=== PATIENT | female | born 1945 | race Caucasian/White ===

== ENCOUNTER 2017-02-27 07:10 | Observation (INO) | payer MEDICARE ==
[2017-02-27] MEDS ORDERED: Morphine 2 MG/ML SYRINGE ONE ×4 (08:09→11:36)
--- NOTE | 2017-02-27 08:47 | RAD ---
THREE VIEWS LUMBOSACRAL SPINE: 02/27/17 COMPARISON: None. HISTORY: Plasma cell leukemia with back pain. FINDINGS: Three views lumbosacral spine shows vertebroplasty cement within the L5 vertebral body. There is wed ge compression deformity of the L1 vertebral body with approximately 25% height loss. This appears t o be chronic as there are end plate degenerative changes along the superior end plate. Small osteoph ytes are seen throughout the lumbar spine. Vertebroplasty cement is also seen in the lower thoracic spine. IMPRESSION: Wedge compression deformity of L1. POS: [facility]
[2017-02-27] MEDS ORDERED: Cyclobenzaprine 10 MG TAB ONE (09:26)
[2017-02-27 10:16] LABS: #Eosinphils 0.1 thou/uL (0.0-0.7); #Lymphocytes 0.7 thou/uL (1.20-3.40); #Monocytes 0.7 thou/uL (0.11-0.59); #Neutrophils 3.9 thou/uL (1.40-6.50); %Basophils 0.3 % (0.0-1.0); %Eosinophils 1.5 % (0.0-10.0); %Lymphocytes 12.7 % (21.0-51.0); %Monocytes 13.3 % (0.0-10.0); Hematocrit 39.9 % (36.0-47.0); Mean Platelet Volume 8.5 fL (7.4-10.4); Red Blood Cell (RBC) Count 3.84 mill/uL (4.20-5.40); White Blood Cell (WBC) Count 5.4 thou/uL (4.8-10.8)
[2017-02-27 10:24] LABS: Anion Gap 14 mmol/L (10-20); BUN (Urea Nitrogen) 18 mg/dL (9.8-20.1); Calc. Creatinine Clearance 0 mL/min (70-130); Calcium 9.8 mg/dL (7.8-10.44); Carbon Dioxide 21 mmol/L (23-31); Chloride 109 mmol/L (98-107); Estimated GFR-MDRD 58
[2017-02-27 11:36] LABS: Bilirubin Negative (Negative); Blood, Urine Trace (Negative); Glucose, Urine (Dipstick) Negative (Negative); Ketone, Urine Negative (Negative); Nitrite Negative (Negative); Protein, Urine (Dipstick) Negative (Neg-Trace); Urobilinogen 0.2 mg/dL (0.2-1.0)
[2017-02-27 11:39] LABS: Bacteria/HPF None Seen HPF (None Seen); Hyaline Casts/LPF 0-3 HYALINE CAST LPF (0-3 Hyaline); Squamous Epithelial 0-3 HPF (0-3); WBC/HPF 0-3 HPF (0-3)
[2017-02-27] MEDS ORDERED: Diabetic Tussin 200 MG/10 ML UDCUP PO PRN (12:52)
[2017-02-27] MEDS ORDERED: Mag-Al 1200 mg/1200 mg/30 ML UDCUP PO PRN (12:52)
[2017-02-27] MEDS ORDERED: Artificial Tears 18 DROP/0.9 ML EA EYE PRN (12:52)
[2017-02-27] MEDS ORDERED: Eucerin (Mineral Oil/Petrolatum,White) 30 gm Jar TOP PRN (12:52)
[2017-02-27] MEDS ORDERED: hydrALAZINE 20 MG/ML VIAL SLOW IVP PRN (12:52)
[2017-02-27] MEDS ORDERED: HYDROcodone/Acetaminophen 10/325 mg Tablet PO PRN (12:52)
[2017-02-27] MEDS ORDERED: Acetaminophen 325 MG TAB PO PRN (12:52)
[2017-02-27] MEDS ORDERED: cloNIDine 0.1 MG TAB PO PRN (12:52)
[2017-02-27] MEDS ORDERED: Loperamide HCl 2 MG CAP PO PRN (12:52)
[2017-02-27] MEDS ORDERED: Senokot 8.6 MG TAB PO PRN (12:52)
[2017-02-27] MEDS ORDERED: Chloraseptic Spray 180 ml Bottle PO PRN (12:52)
[2017-02-27] MEDS ORDERED: Loratadine 10 MG TAB PO PRN (12:52)
[2017-02-27] MEDS ORDERED: Ondansetron HCl/PF 4 MG/2 ML Vial IVP PRN (12:52)
[2017-02-27] MEDS ORDERED: Milk Of Magnesia 30 ML UDCUP PO PRN (12:52)
[2017-02-27] MEDS ORDERED: Zolpidem Tartrate 5 MG TAB PO PRN (12:52)
[2017-02-27] MEDS ORDERED: Sodium Chloride 0.65% Nasal 44 ML BOT EA NARE PRN (12:52)
[2017-02-27] MEDS ORDERED: Ondansetron ODT 4 MG TAB PO PRN (12:52)
--- NOTE | 2017-02-27 13:29 | HP ---
PRIMARY CARE PHYSICIAN: Toribio Chavez M.D. REASON FOR ADMISSION: Acute on chronic low back pain. HISTORY OF PRESENT ILLNESS: A 71-year-old female who has diagnosis of multiple myeloma, which was diagnosed in 2014 and subsequently patient had a stem cell transplant in 2017. Patient has multiple compression fractures in the past, required several kyphoplasty and she does have chronic low back pain. This time she came to emergency room for increasing acute back pain. The patient reports that she does have chronic low back pain, but it is able to be managed with oral pain medication. Yesterday afternoon, the pain was started increasing. In evening time, the pain became more excruciating and around midnight, the patient's pain was not manageable with the pain medication. The patient was also having difficulty getting out of bed. The patient's helps to make her in bed. This morning, the patient was not able to ambulate because of excruciating pain even with help and that is why family member called paramedics and paramedics brought her to emergency room. Her pain level is more than 10/10. She never experienced this degree of pain. She was not able to walk because of extreme pain and that is why she came to emergency room for evaluation. Patient reports that she was given pain medication, Tylenol #3 which is no longer helping. Patient had several kyphoplasty procedures done by Dr. Javed in [place]. She had most recently kyphoplasty done in 01/27/2017 at L5 level and subsequently she made followup appointment with Dr. Javed. At that time, patient had MRI which was unchanged and she was told that everything was fine. She does not know what precipitated her back pain, but the pain started spontaneously and she also reports that her L5 compression fracture was also spontaneous. The patient denies any incontinence of urination or stool. She denies any constipation or diarrhea. She denies any UTI symptoms. She denies any chest pain, palpitation or shortness of breath. She denies any headache or fall. She denies any chest pain, palpitations or syncope. In the emergency room, the patient had x-ray of lumbar spine which showed L1 compressive deformity. The patient was given pain medication with morphine 4 mg x3 doses and Flexeril 10 mg. After that, patient's pain was somewhat controlled, but not to the point baseline. The patient is being admitted for pain control. PAST MEDICAL HISTORY: Plasma cell cytoma (multiple myeloma diagnosed in 2014 and subsequently required stem cell transplantation). Labile hypertension, she reports to be white coat hypertension, never treated. Dyslipidemia diagnosed in 2003, but she is no longer taking any statin therapy. History of polio by age of 7 with left arm weakness. History of left breast cancer required lumpectomy in 2010, subsequently patient had radiation therapy. She is following Oncology in [place], [place]. PAST SURGICAL HISTORY: Rotator cuff repair, left breast lumpectomy, in 1981, colonoscopy showed diverticulosis in 2010, cataract surgery, MediPort placement in October, L5 kyphoplasty in 01/27/2017. Patient had T8, T9, T10, and T11 kyphoplasty in past, stem cell transplant on 12/2016, ?heart bypass surgery , appendicectomy, elbow surgery, left eye retinal tear repair. PAST PSYCHIATRIC HISTORY: Reviewed and negative. SOCIAL HISTORY: Patient is and lives at home with the family. No history of tobacco, alcohol or illicit drug abuse. ALLERGIES: No known drug allergies. CURRENT HOME MEDICATIONS: Tylenol #3 one tablet q.6 hourly p.r.n., Remeron 7.5 mg p.o. at bedtime. EMERGENCY ROOM COURSE: The patient is given morphine 4 mg 3 times dose, Flexeril 10 mg. FAMILY HISTORY: No strong family history of premature coronary artery disease, stroke or cancer. REVIEW OF SYSTEMS: The following complete review of systems was negative, unless otherwise mentioned in the HPI or below: Constitutional: Weight loss or gain, ability to conduct usual activities. Skin: Rash, itching. Eyes: Double vision, pain. ENT/Mouth: Nose bleeding, neck stiffness, pain, tenderness. Cardiovascular: Palpitations, dyspnea on exertion, orthopnea. Respiratory: Shortness of breath, wheezing, cough, hemoptysis, fever or night sweats. Gastrointestinal: Poor appetite, abdominal pain, heartburn, nausea, vomiting, constipation, or diarrhea. Genitourinary: Urgency, frequency, dysuria, nocturia. Musculoskeletal: Pain, swelling. Neurologic/Psychiatric: Anxiety, depression. Allergy/Immunologic: Skin rash, bleeding tendency. Please see my HPI for pertinent positives and negative. All other review of system reviewed and negative except as mentioned in the HPI. PHYSICAL EXAMINATION: VITAL SIGNS: On arrival, blood pressure 156/80, pulse 78, respiratory rate 20, temperature 97.6, saturation 100% on room air, weight 61 kilograms. GENERAL: The patient is currently in mild distress due to back pain. HEAD: Normocephalic, atraumatic. EYES: Pupils round, reactive to light. Extraocular muscle intact. ENT: Oropharynx within normal limits. Moist mucous membrane, no oral lesions, no pharyngeal erythema, no exudate. NECK: Supple. Range of motion is normal. No meningeal signs of irritation. LUNGS: Clear to auscultation without any rhonchi or rales. CARDIAC: S1 and S2 regular without any murmur. ABDOMEN: Soft, bowel sounds present, nontender, nondistended. No organomegaly , no mass, no suprapubic tenderness. BACK: Examination unremarkable, no CVA tenderness. Point tenderness noted at L2-L3. EXTREMITIES: Upper extremity passive movement normal. Lower extremity passive movements of all joints are normal. No edema, good peripheral pulsation. SKIN: No skin rash. HEMATOLOGICAL SYSTEM: No lymphadenopathy. PSYCHIATRIC: Normal affect. NEUROLOGIC: The patient is alert and oriented x3. Cranial nerves II-XII intact. Motor 5/5 in all four limbs. Sensation bilaterally symmetrical. No gross focal neurological deficit noted. IMAGING AND SIGNIFICANT LABORATORY DATA: X-ray of lumbar spine showing post- surgical changes, L1 vertebral body loss consistent with wedge compression deformity of L1. CBC: WBC 5.4, hemoglobin 13.2, MCV 104, and platelets 159. BMP: Sodium 140, potassium 3.7, chloride 109, carbon dioxide 21, BUN 18, creatinine 0.95, calcium 9.8. Urinalysis unremarkable. ASSESSMENT AND PLAN/IMPRESSION: 1. Acute and chronic low back pain. This patient has exacerbation of chronic low back pain. I am suspecting new compression fracture. This patient's x-ray lumbar spine showing wedge compression deformity of L1. At this point, patient has severe pain and she is not able to ambulate. The patient cannot be managed at home and her oral pain medication is not helping. This patient will need hospitalization for pain control. We will control her pain with morphine 4 mg every 4 hourly, Toradol 15 mg IV q.6 hourly and muscle relaxant, Flexeril 10 mg t.i.d. p.r.n. We will consult rehabilitation for inpatient rehabilitation placement and I will also do lumbar spine MRI to rule out any acute pathology. 2. Macrocytosis. We will start folic acid 1 mg p.o. daily, vitamin B12 1000 mcg p.o. daily. 3. Plasma cell leukemia/multiple myeloma. The patient is following Oncology in [place], [place]. 4. History of hypertension, history of dyslipidemia, history of anxiety and depression, history of chronic low back pain. 5. Deep venous thrombosis prophylaxis, Lovenox 30 mg subcutaneously daily. 6. Gastrointestinal prophylaxis, Pepcid 20 mg p.o. b.i.d. 7. Code status: The patient is FULL CODE. Patient's is surrogate decision maker. Disposition plan based on clinical course. 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 BAILEY
[2017-02-27] MEDS: Ketorolac Tromethamine 30 MG/ML VIAL IVP PRN ×2 (14:20→21:42)
[2017-02-27 15:57] VITALS: BMI 22.8
[2017-02-27] MEDS ORDERED: Sterile Water 10 ML VIAL IVP SCH (17:00)
[2017-02-27] MEDS ORDERED: Activase 2 MG VIAL CATH SCH (17:00)
[2017-02-27] MEDS: Cyclobenzaprine 10 MG TAB PO PRN (17:40)
[2017-02-27] MEDS: Docusate 100 MG CAP PO SCH (21:42)
[2017-02-27] MEDS: Famotidine 20 MG TAB PO SCH (21:42)
[2017-02-28] MEDS: Lorazepam 0.5 MG TAB PO PRN ×2 (00:11→22:57)
[2017-02-28] MEDS: Ketorolac Tromethamine 30 MG/ML VIAL IVP PRN ×4 (04:31→22:56)
[2017-02-28] MEDS: Cyclobenzaprine 10 MG TAB PO PRN ×3 (04:32→20:44)
[2017-02-28] MEDS: Docusate 100 MG CAP PO SCH ×2 (08:55→20:38)
[2017-02-28] MEDS: Enoxaparin Sodium 30 MG/0.3 ML SYRINGE SC SCH (08:55)
[2017-02-28] MEDS: Cyanocobalamin (Vitamin B-12) 1,000 MCG TAB PO SCH (08:55)
[2017-02-28] MEDS: Folic Acid 1 MG TAB PO SCH (08:56)
[2017-02-28] MEDS: Famotidine 20 MG TAB PO SCH ×2 (08:56→20:39)
--- NOTE | 2017-02-28 11:41 | PDOC.PN ---
- Subjective Encounter Start Date: 02/28/17 Encounter Start Time: 09:10 -: old records requested/rev pt still has pain, has not done therapy yet Patient seen and examined. No new complaints. No overnight events - Objective Resuscitation Status: Resuscitation Status FULL:Full Resuscitation MAR Reviewed: Yes Vital Signs & Weight: Vital Signs (12 hours) Temp Pulse Resp BP Pulse Ox 02/28/17 07:18 98.4 F 59 L 16 106/66 97 02/28/17 04:00 97.7 F 57 L 16 113/69 95 02/28/17 00:00 97.6 F 57 L 16 100/61 96 Weight Weight 133 lb I&O: 02/27/17 02/28/17 03/01/17 06:59 06:59 06:59 Intake Total 480 Balance 480 Result Diagrams: 02/27/17 09:46 02/27/17 09:46 Radiology Reviewed by me: Yes Phys Exam - Physical Examination Constitutional: NAD HEENT: PERRLA, moist MMs, sclera anicteric Neck: no JVD, supple Respiratory: no wheezing, no rales, no rhonchi Cardiovascular: RRR, no significant murmur, no rub Gastrointestinal: soft, non-tender, no distention, positive bowel sounds Musculoskeletal: no edema, pulses present Neurological: non-focal, normal sensation Lymphatic: no nodes Psychiatric: normal affect, A&O x 3 Skin: no rash, normal turgor Dx/Plan (1) Acute exacerbation of chronic low back pain Code(s): M54.5 - LOW BACK PAIN; G89.29 - OTHER CHRONIC PAIN Status: Acute (2) Anxiety and depression Code(s): F41.8 - OTHER SPECIFIED ANXIETY DISORDERS Status: Chronic (3) Compression fracture Code(s): NOL7109 - Status: Chronic (4) Macrocytosis Code(s): D75.89 - OTHER SPECIFIED DISEASES OF BLOOD AND BLOOD-FORMING ORGANS Status: Chronic (5) Plasma cell leukemia in remission Code(s): C90.11 - PLASMA CELL LEUKEMIA IN REMISSION Status: Chronic - Plan cont current plan of care, plan discussed w/ family, PT/OT, public health social worker * continue pain control * today MRI * rehab evaluation * medication reviewed as below * symptomatic treatment. Review of Systems - Review of Systems Eyes: negative: Pain, Vision Change, Conjunctivae Inflammation, Eyelid Inflammation, Redness, Other ENT: negative: Ear Pain, Ear Discharge, Nose Pain, Nose Discharge, Nose Congestion, Mouth Pain, Mouth Swelling, Throat Pain, Throat Swelling, Other Respiratory: negative: Cough, Dry, Shortness of Breath, Hemoptysis, SOB with Excertion, Pleuritic Pain, Sputum, Wheezing Cardiovascular: negative: Chest Pain, Palpitations, Orthopnea, Paroxysmal Noc. Dyspnea, Edema, Light Headedness, Other Gastrointestinal: negative: Nausea, Vomiting, Abdominal Pain, Diarrhea, Constipation, Melena, Hematochezia, Other Genitourinary: negative: Dysuria, Frequency, Incontinence, Hematuria, Retention , Other Musculoskeletal: Back Pain. negative: Neck Pain, Shoulder Pain, Arm Pain, Hand Pain, Leg Pain, Foot Pain, Other - Medications/Allergies Allergies/Adverse Reactions: Allergies Allergy/AdvReac Type Severity Reaction Status Date / Time No Known Allergies Allergy Unverified 02/27/17 13:23 Medications: Current Medications Acetaminophen (Tylenol) 650 mg PO Q4H PRN PRN Reason: Headache/Fever or Pain Hydrocodone Bitart/Acetaminophen (Kenneth 10/325) 1 tab PO Q4H PRN PRN Reason: Moderate Pain (4-6) Al Hydroxide/Mg Hydroxide (Maalox) 30 ml PO Q6H PRN PRN Reason: Heartburn or Indigestion Artificial Tears (Tears Naturale) 0 drop EA EYE PRN PRN PRN Reason: Dry Eyes Clonidine HCl (Catapres) 0.1 mg PO Q4H PRN PRN Reason: Systolic BP > 180 Cyanocobalamin (Vitamin B-12) 1,000 mcg PO DAILY [facility] Last Admin: 02/28/17 08:55 Dose: Not Given Cyclobenzaprine HCl (Flexeril) 10 mg PO TIDPRN PRN PRN Reason: Muscle Spasm Last Admin: 02/28/17 04:32 Dose: 10 mg Docusate Sodium (Colace) 100 mg PO BID [facility] Last Admin: 02/28/17 08:55 Dose: Not Given Enoxaparin Sodium (Lovenox) 30 mg SC 0900 [facility] Last Admin: 02/28/17 08:55 Dose: Not Given Famotidine (Pepcid) 20 mg PO BID [facility] Last Admin: 02/28/17 08:56 Dose: Not Given Folic Acid (Folvite) 1 mg PO DAILY [facility] Last Admin: 02/28/17 08:56 Dose: Not Given Guaifenesin (Robitussin Sf) 200 mg PO Q4H PRN PRN Reason: Cough Heparin Sodium (Porcine) (Heparin Lock Flush 100 Units/Ml) 500 units IVF PRN PRN PRN Reason: Heparin Flush Last Admin: 02/28/17 10:44 Dose: 500 unit Hydralazine HCl (Apresoline) 10 mg SLOW IVP Q4H PRN PRN Reason: Systolic BP > 180 Ketorolac Tromethamine (Toradol) 15 mg IVP Q6H PRN PRN Reason: Pain Stop: 03/04/17 12:53 Last Admin: 02/28/17 10:42 Dose: 15 mg Loperamide HCl (Imodium) 2 mg PO PRN PRN PRN Reason: Diarrhea/Loose Stools Loratadine (Claritin) 10 mg PO DAILYPRN PRN PRN Reason: Sinus Symptoms Lorazepam (Ativan) 0.5 mg PO HSPRN PRN PRN Reason: Anxiety Last Admin: 02/28/17 00:11 Dose: 0.5 mg Magnesium Hydroxide (Milk Of Magnesium) 30 ml PO DAILYPRN PRN PRN Reason: Constipation Mineral Oil/White Petrolatum (Eucerin Cream) 0 gm TOP BIDPRN PRN PRN Reason: Dry Skin Morphine Sulfate (Morphine Sulfate) 4 mg SLOW IVP Q4H PRN PRN Reason: Pain Ondansetron HCl (Zofran Odt) 4 mg PO Q6H PRN PRN Reason: Nausea/Vomiting Last Admin: 02/27/17 14:23 Dose: 4 mg Ondansetron HCl (Zofran) 4 mg IVP Q6H PRN PRN Reason: Nausea/Vomiting Phenol (Chloraseptic Ferguson 180 Ml Bot) 0 ml PO PRN PRN PRN Reason: Sore Throat Senna (Senokot) 2 tab PO HSPRN PRN PRN Reason: Constipation Sodium Chloride ([place] Nasal Ferguson 0.65%) 0 ml EA NARE QIDPRN PRN PRN Reason: Nasal Congestion Zolpidem Tartrate (Ambien) 5 mg PO HSPRN PRN PRN Reason: Insomnia
[2017-02-28] MEDS ORDERED: Lorazepam 0.5 MG TAB PO PRN (13:13)
--- NOTE | 2017-02-28 13:46 | DIS ---
DATE OF ADMISSION: 02/27/2017 DATE OF DISCHARGE: Pending. PRIMARY CARE PHYSICIAN: Toribio Chavez M.D. PRIMARY DISCHARGE DIAGNOSIS: Acute exacerbation of chronic low back pain. SECONDARY DISCHARGE DIAGNOSES: Multiple compression fracture required kyphoplasty, anxiety, depress ion, macrocytosis, history of plasma cell leukemia under remission. PRIMARY PROCEDURE/OPERATION: None. RADIOLOGICAL INVESTIGATION: Lumbar spine x-ray showed wedge compression deformity of L1. Lumbar sp ine MRI is done. SIGNIFICANT LABORATORY DATA: WBC 5.4, hemoglobin 13.2, platelet 159, MCV 104, sodium 140, potassium 3.7, BUN 18, creatinine 0.95, and calcium 9.8. Urinalysis unremarkable. DISCHARGE MEDICATIONS: Dexamethasone 1 mg p.o. daily, lorazepam 0.5 mg p.o. at bedtime p.r.n., Revl imid 5 mg p.o. daily, Zofran 4 mg p.o. q.8 hourly p.r.n., Tylenol #3 one or two tablets p.o. q.6 noble rly p.r.n., Flexeril 10 mg p.o. t.i.d. p.r.n., vitamin B12 1000 mcg p.o. daily, folic acid 1 mg p.o. daily, and Pepcid 20 mg p.o. b.i.d. CONTRAINDICATIONS: None. CODE STATUS: FULL CODE. INPATIENT [employer] CONSULTANT: None. ALLERGIES: No known drug allergy. DISCHARGE PLAN: Post hospital, the patient will follow up with primary care physician in 1 week. HOSPITAL COURSE: A 71-year-old female who has plasma cell leukemia and she had stem cell transplant ation and she had multiple compression fracture, required kyphoplasty procedure. At this time, she came to the emergency room because of acute on chronic back pain. Patient was having a hard time am bulating. Even with assistance, patient was not able to move and that is why she came to emergency room for evaluation. In the emergency room, lumbar spine x-ray showed L1 wedge deformity. We did MRI lumbar spine. Steffen tan report of MRI is pending. At this point, the patient's pain is well controlled with Toradol, F lexeril. She needs more PT, OT and that needs rehabilitation evaluation. If rehabilitation is acce pting her, then we will consider discharging; therefore more pain control. The patient may need tho racolumbar brace based on MRI finding. At this point, patient is medically stable. The patient is seen and examined at bedside today. Onc e rehabilitation accepts her, then we will consider discharging to inpatient rehabilitation. The patient is seen and examined at bedside today. Please see my progress note from today for furth er details. Paperwork for discharge done. Discharge medication reconciliation done.
--- NOTE | 2017-02-28 16:35 | MRI ---
MRI LUMBAR SPINE WITH AND WITHOUT IV CONTRAST 02/28/17 HISTORY: Acute lower back pain which started two days ago. History of leukemia. Patient also has history of p rior kyphoplasty procedures. FINDINGS: The conus medullary is normal in appearance and terminates at the L1-2 level. There are low signal intensity areas seen within the T10, T11, and L5 vertebral bodies consistent wi th prior vertebroplasty procedures. There are multiple scattered subcentimeter foci of increased sig nal intensity within the vertebral bodies, and some of these areas demonstrate enhancement. There ar e also multifocal subcentimeter areas of enhancement seen in the visualized bilateral iliac bones as well as the upper sacrum. This larger area of enhancement seen in the right lateral right sacral al a measuring 2.5 cm. The findings could be seen with marrow infiltrative process such as leukemia or other metastatic disease. Few scattered Schmorl's nodes are seen within several vertebral bodies. There is slight height loss of the T12 as well as L1 vertebral bodies, but no bone marrow edema is seen to suggest recent compre ssion fractures. T11-12 level: There is retropulsion of the posterior inferior aspect of the T11 vertebral body which narrows the ventral subarachnoid space. Neural foramina do appear patent. T11-12 level: There is mild posterior osteophyte formation and disc bulge without significant narrow ing of the central spinal canal or neural foraminal narrowing. T12-L1 level: There is mild broad based disc osteophyte complex which only results in slight effacem ent of the thecal sac. Neural foramina are widely patent. L1-2 level: There is minimal broad based disc osteophyte complex without significant narrowing of th e central spinal canal. The neural foramina are patent. L2-3 level: There is a mild broad based disc bulge resulting in mild narrowing of the central spinal canal. The neural foramina are patent. L3-4 level: There is a broad based disc osteophyte complex with facet hypertrophic changes. There is mild narrowing of the central spinal canal with minimal encroachment on each neural foramen. L4-5 level: There is a broad based disc osteophyte complex with facet hypertrophic changes. There is resultant mild narrowing of the central spinal canal with mild right sided neural foraminal narrowi ng. Left neural foramen appears patent. L5-S1 level: There is no significant disc bulge or disc herniation. Minimal posterior osteophyte for mation is present. There are facet hypertrophic changes identified. The neural foramina and central spinal canal do appear patent. A few dilated nerve root sleeves are seen within the sacrum as well as in the right sided neural for amen at the T11-12 and T12-L1 levels. A few subcentimeter increased T2 weighted signal intensity foci are seen within the central portion of each kidney which probably represent tiny parapelvic renal cysts. Subcentimeter cortical cysts se en in the mid portion left kidney. IMPRESSION: 1. Findings consistent with marrow infiltrative process which can be seen with leukemia or meta static disease. 2. Vertebroplasty changes involving the T10 and T11 as well as L5 vertebral bodies. There is al so what appears to be mild enhancement involving the L5 vertebral body which also has postsurgical c hanges related to prior vertebroplasty and this may also represent a neoplastic lesion involving the L5 vertebral body. 3. Mild multilevel degenerative changes. There is no significant narrowing of the central spina l canal or neural foramina. 4. Parapelvic bilateral renal cysts with tiny left renal cortical cysts. 5. Suggestion of very tiny right pleural effusion partially imaged. POS: [facility]
[2017-03-01] MEDS: Cyclobenzaprine 10 MG TAB PO PRN (04:42)
[2017-03-01] MEDS: Ketorolac Tromethamine 30 MG/ML VIAL IVP PRN (05:30)
[2017-03-01 07:27] VITALS: BP 144/51; TEMP 97.7
[2017-03-01] MEDS ORDERED: Dexamethasone 1 MG TAB PO SCH (09:00)
[2017-03-01] MEDS ORDERED: Lenalidomide [Revlimid] 5 MG PO SCH (09:00)
[2017-03-01] MEDS: Cyanocobalamin (Vitamin B-12) 1,000 MCG TAB PO SCH (09:44)
[2017-03-01] MEDS: Folic Acid 1 MG TAB PO SCH (09:45)
[2017-03-01] MEDS: Docusate 100 MG CAP PO SCH (09:45)
[2017-03-01] MEDS: Enoxaparin Sodium 30 MG/0.3 ML SYRINGE SC SCH (09:45)
[2017-03-01] MEDS: Famotidine 20 MG TAB PO SCH (09:45)
[2017-03-01] MEDS ORDERED: Morphine 2 MG/ML SYRINGE SLOW IVP PRN ×2 (09:57→10:55)
--- NOTE | 2017-03-01 11:29 | PDOC.PN ---
- Subjective Encounter Start Date: 03/01/17 Encounter Start Time: 09:05 Patient seen and examined. No new complaints. No overnight events - Objective Resuscitation Status: Resuscitation Status FULL:Full Resuscitation MAR Reviewed: Yes Vital Signs & Weight: Vital Signs (12 hours) Temp Pulse Resp BP BP Pulse Ox 03/01/17 08:00 97.7 F 65 16 03/01/17 07:25 97.7 F 65 16 144/51 H 96 03/01/17 04:00 97.8 F 64 16 116/74 97 03/01/17 00:00 98.8 F 58 L 16 117/72 98 Weight Admit Weight 133 lb Weight 133 lb I&O: 02/28/17 03/01/17 03/02/17 06:59 06:59 06:59 Intake Total 480 750 Balance 480 750 Result Diagrams: 02/27/17 09:46 02/27/17 09:46 Phys Exam - Physical Examination Constitutional: NAD HEENT: PERRLA, moist MMs, sclera anicteric Neck: no JVD, supple Respiratory: no wheezing, no rales, no rhonchi Cardiovascular: RRR, no significant murmur, no rub Gastrointestinal: soft, non-tender, no distention, positive bowel sounds Musculoskeletal: no edema, pulses present Neurological: non-focal, normal sensation, moves all 4 limbs Lymphatic: no nodes Psychiatric: normal affect, A&O x 3 Skin: no rash, normal turgor Dx/Plan (1) Acute exacerbation of chronic low back pain Code(s): M54.5 - LOW BACK PAIN; G89.29 - OTHER CHRONIC PAIN Status: Acute (2) Anxiety and depression Code(s): F41.8 - OTHER SPECIFIED ANXIETY DISORDERS Status: Chronic (3) Compression fracture Code(s): DWP8015 - Status: Chronic (4) Macrocytosis Code(s): D75.89 - OTHER SPECIFIED DISEASES OF BLOOD AND BLOOD-FORMING ORGANS Status: Chronic (5) Plasma cell leukemia in remission Code(s): C90.11 - PLASMA CELL LEUKEMIA IN REMISSION Status: Chronic - Plan cont current plan of care, plan discussed w/ family, PT/OT * medication reviewed as below * symptomatic treatment * see discharge summery from yesterday. Review of Systems - Review of Systems ENT: negative: Ear Pain, Ear Discharge, Nose Pain, Nose Discharge, Nose Congestion, Mouth Pain, Mouth Swelling, Throat Pain, Throat Swelling, Other Respiratory: negative: Cough, Dry, Shortness of Breath, Hemoptysis, SOB with Excertion, Pleuritic Pain, Sputum, Wheezing Cardiovascular: negative: Chest Pain, Palpitations, Orthopnea, Paroxysmal Noc. Dyspnea, Edema, Light Headedness, Other Gastrointestinal: negative: Nausea, Vomiting, Abdominal Pain, Diarrhea, Constipation, Melena, Hematochezia, Other Genitourinary: negative: Dysuria, Frequency, Incontinence, Hematuria, Retention , Other Musculoskeletal: negative: Neck Pain, Shoulder Pain, Arm Pain, Back Pain, Hand Pain, Leg Pain, Foot Pain, Other Skin: negative: Rash, Lesions, Jay, Bruising, Other - Medications/Allergies Allergies/Adverse Reactions: Allergies Allergy/AdvReac Type Severity Reaction Status Date / Time No Known Allergies Allergy Unverified 02/27/17 13:23 Medications: Current Medications Acetaminophen (Tylenol) 650 mg PO Q4H PRN PRN Reason: Headache/Fever or Pain Hydrocodone Bitart/Acetaminophen ([place] 10/325) 1 tab PO Q4H PRN PRN Reason: Moderate Pain (4-6) Al Hydroxide/Mg Hydroxide (Maalox) 30 ml PO Q6H PRN PRN Reason: Heartburn or Indigestion Artificial Tears (Tears Naturale) 0 drop EA EYE PRN PRN PRN Reason: Dry Eyes Clonidine HCl (Catapres) 0.1 mg PO Q4H PRN PRN Reason: Systolic BP > 180 Cyanocobalamin (Vitamin B-12) 1,000 mcg PO DAILY [facility] Last Admin: 03/01/17 09:44 Dose: Not Given Cyclobenzaprine HCl (Flexeril) 10 mg PO TIDPRN PRN PRN Reason: Muscle Spasm Last Admin: 03/01/17 04:42 Dose: 10 mg Dexamethasone (Decadron) 1 mg PO DAILY [facility] Last Admin: 03/01/17 09:45 Dose: Not Given Docusate Sodium (Colace) 100 mg PO BID [facility] Last Admin: 03/01/17 09:45 Dose: Not Given Enoxaparin Sodium (Lovenox) 30 mg SC 0900 [facility] Last Admin: 03/01/17 09:45 Dose: Not Given Famotidine (Pepcid) 20 mg PO BID [facility] Last Admin: 03/01/17 09:45 Dose: Not Given Folic Acid (Folvite) 1 mg PO DAILY [facility] Last Admin: 03/01/17 09:45 Dose: Not Given Guaifenesin (Robitussin Sf) 200 mg PO Q4H PRN PRN Reason: Cough Heparin Sodium (Porcine) (Heparin Lock Flush 100 Units/Ml) 500 units IVF PRN PRN PRN Reason: Heparin Flush Last Admin: 03/01/17 11:09 Dose: 500 unit Hydralazine HCl (Apresoline) 10 mg SLOW IVP Q4H PRN PRN Reason: Systolic BP > 180 Ketorolac Tromethamine (Toradol) 15 mg IVP Q6H PRN PRN Reason: Pain Stop: 03/04/17 12:53 Last Admin: 03/01/17 05:30 Dose: 15 mg Loperamide HCl (Imodium) 2 mg PO PRN PRN PRN Reason: Diarrhea/Loose Stools Loratadine (Claritin) 10 mg PO DAILYPRN PRN PRN Reason: Sinus Symptoms Lorazepam (Ativan) 0.5 mg PO HSPRN PRN PRN Reason: Anxiety Last Admin: 02/28/17 22:57 Dose: 0.5 mg Lorazepam (Ativan) 0.5 mg PO HS PRN PRN Reason: Insomnia Magnesium Hydroxide (Milk Of Magnesium) 30 ml PO DAILYPRN PRN PRN Reason: Constipation Mineral Oil/White Petrolatum (Eucerin Cream) 0 gm TOP BIDPRN PRN PRN Reason: Dry Skin Morphine Sulfate (Morphine Sulfate) 4 mg SLOW IVP Q4H PRN PRN Reason: Pain Last Admin: 03/01/17 11:08 Dose: 4 mg Ondansetron HCl (Zofran Odt) 4 mg PO Q6H PRN PRN Reason: Nausea/Vomiting Last Admin: 02/27/17 14:23 Dose: 4 mg Ondansetron HCl (Zofran) 4 mg IVP Q6H PRN PRN Reason: Nausea/Vomiting Lenalidomide [ (Revlimid] 5 Mg) 0 each PO DAILY [facility] Phenol (Chloraseptic [place] 180 Ml Bot) 0 ml PO PRN PRN PRN Reason: Sore Throat Senna (Senokot) 2 tab PO HSPRN PRN PRN Reason: Constipation Sodium Chloride ([place] Nasal [place] 0.65%) 0 ml EA NARE QIDPRN PRN PRN Reason: Nasal Congestion Zolpidem Tartrate (Ambien) 5 mg PO HSPRN PRN PRN Reason: Insomnia
--- NOTE | 2017-03-01 13:09 | ADD-DIS ---
ADDENDUM This patient was planned for discharge yesterday to the rehab, but patient's family member wanted to go home. They were requesting rolling walker and bedside commode and that prescription was given a nd the patient's family member brought from [facility]. The patient is able to walk by her with support and her pain is controlled with pain medication. [facility] and that is why today we are discharging her home with outpatient followup with [facility] in [place]. Her MRI was essentially unremarkable for any acute process. The patient is seen and examined at bedside today. Please see my progress note from today for furth er details.
== END 2017-03-01 12:19 | disposition home or self-care (01) ==
LOC: ERS 07:10 → T4-A 11:33
PROVIDERS: ADMIT Internal Medicine; ATTEND Internal Medicine
DX: M54.5 Low back pain (principal); G89.29 Other chronic pain; T14.8XXA Other injury of unspecified body region, initial encounter; F32.9 Major depressive disorder, single episode, unspecified; F41.9 Anxiety disorder, unspecified; D75.89 Other specified diseases of blood and blood-forming organs; C95.91 Leukemia, unspecified, in remission; I10 Essential (primary) hypertension; E78.5 Hyperlipidemia, unspecified; Z94.84 Stem cells transplant status; Z90.49 Acquired absence of other specified parts of digestive tract; Z95.1 Presence of aortocoronary bypass graft; Z95.828 Presence of other vascular implants and grafts; Z98.890 Other specified postprocedural states; Z86.12 Personal history of poliomyelitis; Z85.3 Personal history of malignant neoplasm of breast; Z85.79 Personal history of other malignant neoplasms of lymphoid, hematopoietic and related tissues
CPT/HCPCS: 72100; 72158; 80048; 85025; 96374; 96375; 96376 ×4; 97116; 97139 ×5; 99285; G0378; G8978; G8979; G8980; G8987; G8988; J2997; 36415; 81003; 81015; A4353; J1642; J1650; J1885; J2270; J8540; Q0162